=== PATIENT | male | born 1960 | race Caucasian/White ===

== ENCOUNTER 2023-11-23 07:12 | Emergency (ER) | payer OTHER, SELFPAY ==
[2023-11-23 07:15] VITALS: BP 163/107
[2023-11-23 07:41] VITALS: BMI 24.3
[2023-11-23 08:05] LABS: ALT (SGPT) 12 U/L (0-50); AST (SGOT) 20 U/L (17-59); Albumin 4.3 g/dl (3.5-5.0); Alkaline Phosphatase 78 U/L (38-126); Blood Urea Nitrogen 9 mg/dl (9-20); Calcium 9.5 mg/dl (8.4-10.2); Carbon Dioxide 23 mmol/L (22-30); Chloride 105 mmol/L (98-107); Estimated Creatinine Clearance 100 ml/min; Glucose 124 mg/dl (70-99); Potassium 4.2 mmol/L (3.5-5.1); Sodium 137 mmol/L (135-145); Total Bilirubin 0.7 mg/dl (0.2-1.3); Total Protein 6.9 g/dl (6.3-8.2); eGFR > 60.00
[2023-11-23 08:08] LABS: % Basophils 0.6 % (0-2); % Eosinophils 1.5 % (0-6); % Immature Granulocytes 0.4 % (0-0.5); % Neutrophils 62.5 % (42.2-75.2); Absolute Eosinophils 0.1 10^3/uL (0-0.7); Absolute Lymphocytes 1.4 10^3/uL (1.2-3.4); Absolute Monocytes 0.5 10^3/uL (0.1-0.6); Absolute Neutrophils 3.3 10^3/uL (1.4-6.5); Hematocrit 42.6 % (39.0-52.0); Hemoglobin 14.9 g/dL (13.0-18.0); Mean Corpuscular Hgb 30.2 pg (27.0-31.0); Mean Corpuscular Volume 86.2 fL (80.0-94.0); Mean Platelet Volume 11.6 fL (7.4-10.4); Nucleated Red Blood Cells % 0 % (-); Platelet Count 227 10^3/uL (130-400); Red Blood Cell Count 4.94 10^6/uL (4.70-6.10); Red Cell Dist. Width 13.8 % (11.5-14.5); White Blood Cell Count 5.3 10^3/uL (4.8-10.8)
[2023-11-23 08:16] LABS: Troponin I < 0.012 ng/ml
--- NOTE | 2023-11-23 08:21 | ED.GENMED ---
History of Present Illness
General
Chief Complaint: Heart Rate Problem
Source: patient
Exam Limitations: none
Time Seen by Provider: 11/23/23 08:07
Nursing documentation reviewed up to this point in time: agreed with
Travel History
Have you had any contact with someone who has COVID-19?: No
Do you have any symptoms of coronavirus? Fever > 100 degrees, chills, cough, shortness of breath, sore throat, loss of taste or smell, muscle aches, or headache?: No
History of Present Illness
History of Present Illness:
63-year-old male with a past medical history of hypertension who presents to the emergency room for evaluation of palpitations. Patient reports that he has been struggling with severe 'anxiety attacks' since the sudden loss of his in 2020. He
says that he will have bouts of intense anxious feeling associate with palpitations. He says that he was initially seen in this emergency room a few months after onset of the symptoms in 2020 and had an evaluation here that was unremarkable and was
told it was likely related to anxiety but palpitations could be due to short runs of A-fib�he has never had documented A-fib or been diagnosed with this officially he reports and has never seen a school office manager. He was prescribed Xanax to use as
needed for severe anxiety which she says that he rarely uses. He presents to the emergency room today complaining of palpitations. He says that he had a severe anxiety attack on Sunday and that since then he has felt intermittent
palpitations even outside the setting of perceived anxiety which is unusual for him. The symptoms have continued throughout the week and so he finally came for assessment here in the emergency room. He describes a sensation as if his heart is
skipping a beat or pausing for a brief moment�he says that he can feel this when he checks his pulse. He says he does not have any associated chest pain�even during his episodes of severe anxiety he never has any chest pain or shortness of breath
he says. No nausea, vomiting, diaphoresis. No dizziness or lightheadedness. He denies any other complaints.
Past History
Past History
ED Past Medical History: None
ED Past Surgical History: None
Social History
Tobacco: Smoker
Alcohol: Occasional
Drug: Marijuana
Personal:
Living: alone
Employment: Employed
Family History
Family History: Other
Review of Systems
Review of Systems
All Other Systems: ROS reviewed and negative except as documented in HPI and ROS
Constitutional: Denies fever or chills
Respiratory: Denies cough or trouble breathing
Cardiac: Reports palpitations; Denies chest pain, diaphoresis or syncope
ABD/GI: Denies abdominal pain, nausea or vomiting
: Denies flank pain
Musculoskeletal: Denies neck pain or back pain
Neurological: Denies dizzy or headache
Phy Exam
Physical Exam
Physical Exam:
General: Awake, alert, oriented x3; no acute distress
Head: Normocephalic, atraumatic
Eyes: Conjunctiva normal, EOMI
Throat: Airway intact, handling secretions
Neck: Trachea midline, supple without meningismus
Lungs: Clear to auscultation bilaterally, no wheezing, rales, rhonchi
Heart: Regular rate and rhythm, no murmurs, gallops, or rubs
Abd: Soft, non distended, nontender
Neuro: Cranial nerves grossly intact, speech fluid
Skin: no rash
Extremities: No edema in extremities, equal pulses in all extremities
Scores
Heart Failure Risk
Heart Failure Risk Score: Not Applicable
Heart Score for Chest Pain Patients
STEMI patient?: Not applicable
Withdrawal Assessment of Alcohol
Withdrawal Assessment Completed?: Not applicable
Course
Orders/Labs/Results
Orders:
Orders
11/23/23 07:15
EKG [Electrocardiogram (*1)] Urgent
Reason for Study: Atrial Fibrillation
EKG- Treatment ONCE
11/23/23 07:42
CMP [Comprehensive Metabolic Panel] Urgent
Complete Blood Count/With Diff Urgent
TSH Reflex To Free T4 Urgent
Troponin I Urgent
11/23/23 08:23
Add On- LAB Urgent
Comments:: tsh
Tests Added?: tsh
Abnormal Lab Results
11/23/23
07:42
MPV 11.6 H fL
(7.4-10.4)
Glucose 124 H mg/dl
(70-99)
11/23/23 07:42
11/23/23 07:42
Vital Signs
Initial and Last Documented VS:
Initial Vital Signs
Temp Pulse Resp BP Pulse Ox
37.2 C 96 18 163/107 99
11/23/23 07:15 11/23/23 07:15 11/23/23 07:15 11/23/23 07:15 11/23/23 07:15
Last Documented Vital Signs
Temp Pulse Resp BP Pulse Ox
37.2 C 68 16 160/100 98
11/23/23 07:15 11/23/23 08:29 11/23/23 08:29 11/23/23 08:29 11/23/23 08:29
MDM/Problems Addressed
Differential Diagnosis Includes:
PACs, PVCs, anxiety, A-fib/dysrhythmia
MDM/Problems Addressed:
63-year-old male presents for evaluation of intermittent palpitations�has a longstanding history of anxiety/panic associated with palpitations but has been having palpitations this week outside of his typical episodes of anxiety. He thought perhaps
he could be in A-fib as he was told that intermittent palpitations could be related to undiagnosed A-fib in the past. He is hypertensive but otherwise normal vitals. Physical exam as above. His EKG shows a sinus rhythm with no ectopy, no Brugada,
normal QTc. He does have some T wave inversions in the lateral leads which appear new but has not had any chest pain or dyspnea or any other symptoms of an acute coronary syndrome. His anxiety attacks are simply what he describes as an anxious
feeling associated palpitations and have been unchanged for 3 years since his 's . Plan to place an IV will check labs including a CBC and a CMP as well as thyroid studies. Will check a troponin in an abundance of caution given the T wave
inversions but again no symptoms of an acute coronary syndrome. Will monitor patient on telemetry for ectopy or dysrhythmia. Will reassess after the above.
Initial labs reviewed: CBC and CMP unremarkable. His troponin level is undetectable. His thyroid studies are pending. Continue to monitor on telemetry.
Thyroid studies normal. Review of the telemetry strip shows the patient is having occasional PVCs for which she is symptomatic. I suspect this is likely etiology of his symptoms. Will start on low-dose beta-jose luis and refer to cardiology for
outpatient follow-up. I think he is stable for discharge at this point in time. He feels very comfortable with this plan. We spoke about return precautions and all questions were answered.
Chronic conditions affecting care:
Anxiety
Acute Exacerbation and/or Progression of Chronic Illness: HTN
*Pulse Oximetry
Patient hypoxic: no
*EKG
Interpreted by ED Provider?: Yes
Comparison EKG: changes noted (T wave inversions lateral leads)
Heart Rate: 89
Rate: normal
Rhythm: sinus
Armstrong: normal axis
Interval: normal interval
QRS Pattern: normal QRS
Ischemia: T-wave inversion (Lateral leads)
*Critical Care Note
Total Time (30-74mins, 75-104mins- exclusive of procedures): Not Applicable
Data Reviewed
Review of Other/Old Records Reveals: Labs and Records
Source: patient and family (Mother)
ED Attending Note
-
Portions of this chart may have been created with voice recognition software.� Occasional wrong word or��sound alike� substitutions may have occurred due to the inherent limitations of voice recognition software.
Discharge Plan
Departure
Patient Disposition: Home (Routine Discharge)
Date of Disposition: 11/23/23
Time of Disposition: 10:01
Patient with high blood pressure during this ER visit?: Yes
Discharge Problem:
PVC's (premature ventricular contractions), Palpitations, Hypertension
Instructions: Ventricular premature beats, BLOOD PRESSURE, Heart Palpitations
Prescriptions:
New
propranolol 10 mg tablet
10 mg PO BID Qty: 60 0RF
alprazolam [Xanax] 0.5 mg tablet
0.5 mg PO Q8HPRN PRN (Reason: anxiety) Qty: 5 0RF
No Action
omeprazole 20 MG capsule,delayed release(DR/EC)
20 mg PO DAILY
alprazolam 0.5 MG tablet
0.5 mg PO Q6HPRN PRN (Reason: severe anxiety/panic) Qty: 15 0RF
Referrals:
Chava Martin MD [Family Provider] - Keep scheduled appt
Torres Camara MD [Active] - Call in 1-3 days for appt
Activity Restrictions/Additional Instructions:
Thank you for visiting the Emergency Department at [facility].
1. Please schedule a follow up appointment as directed. Call first thing tomorrow morning to make an appointment.
2. If indicated, please take your medications as instructed and indicated on discharge paperwork.
3. If any of your symptoms do not improve, or persist, or become more severe within 6-12 hours, please return to the emergency department for further care.
4. Please return to the emergency department if you develop a headache, neck pain/stiffness, fever greater than 100.4F, chest pain, shortness of breath, persistent nausea, vomiting, slurred speech, difficulty walking, numbness/tingling, weakness,
signs of infection or any other symptoms that are worrisome to you.
Please call [phone] if you have any questions.
Interventions
Interventions:
*Risk Screen - Suicide Last Done: 11/23/23 08:24
*General Assessment Last Done: 11/23/23 07:24
*Neglect/Abuse Screening Last Done: 11/23/23 08:24
ED- Fall Risk Assessment Last Done: 11/23/23 08:24
*ED COVID-19 Vaccine History Last Done: 11/23/23 07:24
ED- Cardiac Assessment Last Done: 11/23/23 08:24
ED- Pulmonary Assessment Last Done: 11/23/23 08:24
Discharge Date and Time
Print Language: [place]
[2023-11-23 08:29] VITALS: BP 160/100
[2023-11-23 09:48] LABS: TSH Reflex To Free T4 1.59 uIU/ml (0.47-4.68)
[2023-11-23] MEDS: INDERAL 10 MG PO (10:18)
== END 2023-11-23 10:26 | disposition home or self-care (01) ==
LOC: EMR 07:12
PROVIDERS: Emergency Medicine; EMERGENCY PHYSICIAN Emergency Medicine; FAMILY PHYSICIAN Family Medicine
DX: I49.3 Ventricular premature depolarization (principal); R00.2 Palpitations; I10 Essential (primary) hypertension; F41.9 Anxiety disorder, unspecified; F17.200 Nicotine dependence, unspecified, uncomplicated
CPT/HCPCS: 99284; 80053; 84443; 84484; 85025; 93005